=== PATIENT | male | born 1940 | race African-American/Black ===

== ENCOUNTER 2016-10-01 04:04 | Emergency (ER) | payer MEDICARE, BC, OTHER ==
[~2016-10-01 04:04] MED LIST: BACDS PO; FLOMAX4 PO; GLUCOPHAGE1000 MG PO; GLUCPH PO; KLOR-CON 1010 MEQ PO; LIPITOR40 PO; MICARDIS HCT PO; MICARDIS80 PO; MULTIVITAMIN CHEW PO; NORV10 PO; PROAIR HFA INH
[2016-10-01 04:53] LABS: BASOPHILS 0.4 %; BASOPHILS ABSOLUTE 0.03 10/3/uL (0.0-0.16); EOSINOPHILS 2.5 %; ER CBC TAT 0 Hrs 08 Mins; HEMATOCRIT 40.5 % (40.0-51.0); HEMOGLOBIN 14.1 g/dL (13.6-17.8); IMMATURE GRANULOCYTES 0.4 %; IMMATURE GRANULOCYTES ABSOLUTE 0.03 10/3/uL (0.0-0.11); LYMPHOCYTES 25.5 %; LYMPHOCYTES ABSOLUTE 2.02 10/3/uL (0.67-4.30); MEAN CORPUS HGB CONC 34.8 g/dL (32.0-36.0); MEAN CORPUSCULAR HEMOGLOB 29.6 pg (26.0-34.0); MEAN CORPUSCULAR VOLUME 85.1 fL (80-100); MEAN PLATELET VOLUME 8.7 fL (9.2-13.0); MONOCYTES 10.9 %; MONOCYTES ABSOLUTE 0.86 10/3/uL (0.21-1.20); NEUTROPHILS 60.3 %; NEUTROPHILS ABSOLUTE 4.77 10/3/uL (2.02-8.40); PLATELET COUNT 216 10/3/uL (150-400); RBC DISTRIBUTION WIDTH 13.1 % (12.0-16.0); RED CELL COUNT 4.76 10/6/uL (4.7-6.1); WHITE BLOOD CELLS 7.9 10/3/uL (4.5-10.5)
[2016-10-01 04:54] LABS: MANUAL DIFF NO %
[2016-10-01 05:01] LABS: INTERNATIONAL NORMAL RATI 1.1 UNITS (-); PARTIAL THROMBO TIME 26.3 SEC (22.5-37.2); PROTIME (NOT ORD) 14.4 SEC (12.0-14.5)
[2016-10-01 05:12] LABS: A/G RATIO 0.9 (0.7-1.9); ALBUMIN 3.5 G/DL (3.5-5.0); BUN (BLOOD UREA NITROGEN) 16 MG/DL (6-23); CALCIUM, SERUM 8.9 MG/DL (8.5-10.4); CHLORIDE, SERUM 99 MMOL/L (96-112); CO2 (CARBON DIOXIDE) 26 MMOL/L (24-34); GFR AFRICAN AMERICAN 99 ML/MIN (>=60); GFR NON AFRICAN AMERICAN 86 ML/MIN (>=60); GLOBULIN 4.1 G/DL (2.5-4.1); GLUCOSE, SERUM 293 MG/DL (60-99); SGOT(AST) 11 U/L (5-40); SGPT(ALT) 21 U/L (5-65); SODIUM, SERUM 136 MMOL/L (135-148); TOTAL BILIRUBIN 0.7 MG/DL (0-1.2); TOTAL PROTEIN 7.6 G/DL (6.0-8.5); TROPONIN I <0.02 NG/ML (<0.05)
[2016-10-01 05:13] LABS: ALKALINE PHOSPHATASE 110 U/L (45-117)
== END 2016-10-01 06:12 | disposition home or self-care (01) ==
LOC: ER 04:04
PROVIDERS: Nurse Practitioner Acute Care
DX: M54.2 Cervicalgia (principal); R20.0 Anesthesia of skin
CPT/HCPCS: 70450; 71010; 80053; 84484; 85025; 85610; 85730; 99285